=== PATIENT | female | born 1980 | race Caucasian/White ===

== ENCOUNTER → 2017-03-20 | Outpatient (CLI) | payer OTHER ==
[~2017-03-20] MED LIST: AMOXICILLIN500 M2 PO; BENADRYL25 MG PO; BUSPIRONE10 MG PO; CLARITIN10 MG PO; CLOBETASOL0.05% TP; DAILY VALUE1 EACH PO; DAYPRO600 M1 PO; ELIMITE 5%60 GM PO; FIORICET 325 MG1 TAB PO; FLEXERIL10 MG PO; FLONASE ALLERG9.9 ML NAS; LOTRISONE 0.05%1 CRE T; MACROBID100 M1 PO; MELATONIN3 M1 PO; Motrin,Rufen800 MG PO; NORCO 10-325 T1 EACH PO; PREDNICOT20 MG PO; PREDNISONE10 MG PO; PREDNISONE20 MG PO; PRENATAL1 TA1 PO; ROBAXIN750 MG PO; ROBITUSSIN AC 110 ML PO; SALINE NOSE SPR45 ML NS; TRIAMCINOLONE AC0.1% T; TYLENOL325 M1 PO; VENLAFAXINE37.5 M1 PO; ZANTAC 150150 MG PO; ZYRTEC10 MG PO
== END | disposition home or self-care (01) ==
LOC: RAD 16:34
DX: M54.5 Low back pain (principal); M54.2 Cervicalgia; M25.512 Pain in left shoulder

== ENCOUNTER 2017-05-05 22:13 | Emergency (ER) | payer OTHER ==
[~2017-05-05] VITALS: Ht 157.4 cm; Wt 75.7 kg
[2017-05-05 22:46] LABS: BASO # 0.1 10*3/uL (0.0-0.1); BASO % 0.8 % (0.0-1.0); EOS # 0.3 10*3/uL (0.0-0.4); EOS % 3.8 % (1.0-4.0); HEMATOCRIT 36.5 % (37.0-47.0); HEMOGLOBIN 11.7 g/dl (12.0-16.0); LYMPH # 2.2 10*3/uL (1.3-4.4); LYMPH % 28.4 % (27.0-41.0); MEAN CELL VOLUME 76.7 fl (81.0-99.0); MEAN CORPUSCULAR HGB 24.6 pg (27.0-31.0); MEAN CORPUSCULAR HGB CONC 32.1 g/dl (33.0-37.0); MEAN PLATELET VOLUME 9.6 fl (9.6-12.3); MONO # 0.9 10*3/uL (0.1-1.0); MONO % 11.2 % (3.0-9.0); NEUT # 4.3 10*3/uL (2.3-7.9); NEUT % 55.7 % (47.0-73.0); PLATELET COUNT AUTOMATED 233 10*3/uL (130-400); RED BLOOD COUNT 4.76 10*6/uL (4.10-5.10); RED CELL DISTRI WIDTH 15.9 % (0-14.5); WHITE BLOOD COUNT 7.7 10*3/uL (4.8-10.8)
[2017-05-05 22:59] LABS: BUN 13 mg/dl (7-24); CARBON DIOXIDE 27 mmol/L (21-32); CHLORIDE 102 mmol/L (98-107); EST GLOM FILT AFRICAN AMERICAN > 60 ml/min; GLUCOSE 97 mg/dL (65-99); POTASSIUM 3.9 mmol/L (3.5-5.1); SODIUM 137 mmol/L (136-145)
[2017-05-05] MEDS ORDERED: FLUCONAZOLE100 MG PO (23:51)
[2017-05-05] MEDS ORDERED: METROGEL-VAGINA70 GM V (23:51)
[2017-05-05] MEDS ORDERED: LOTRIMIN ULTRA12 GM T (23:51)
[2017-05-05] MEDS ORDERED: MYCOLOG CREAM 115 GM T (23:56)
== END 2017-05-06 00:06 | disposition home or self-care (01) ==
LOC: ED 22:13
PROVIDERS: Emergency Medicine Emergency Medical Services
DX: N76.0 Acute vaginitis (principal); R53.83 Other fatigue; F17.200 Nicotine dependence, unspecified, uncomplicated; Z91.040 Latex allergy status; Z88.6 Allergy status to analgesic agent

== ENCOUNTER 2017-07-19 15:43 | Emergency (ER) | payer OTHER ==
[~2017-07-19] VITALS: Ht 172.7 cm; Wt 68.0 kg
[~2017-07-19 15:43] MED LIST changes: +FLUCONAZOLE100 MG PO; +LOTRIMIN ULTRA12 GM T; +METROGEL-VAGINA70 GM V; +MYCOLOG CREAM 115 GM T
[2017-07-19] MEDS ORDERED: ROBITUSSIN DM 105 ML PO (15:59)
[2017-07-19] MEDS ORDERED: FLONASE ALLERG9.9 ML NAS (15:59)
[2017-07-19] MEDS ORDERED: CLARITIN10 MG PO (15:59)
[2017-07-19] MEDS ORDERED: PREDNISONE10 MG PO (15:59)
== END 2017-07-19 17:07 | disposition home or self-care (01) ==
LOC: ED 15:43
DX: B34.9 Viral infection, unspecified (principal); R03.0 Elevated blood-pressure reading, without diagnosis of hypertension; F17.200 Nicotine dependence, unspecified, uncomplicated; Z88.5 Allergy status to narcotic agent; Z91.040 Latex allergy status

== ENCOUNTER 2017-11-15 12:31 | Emergency (ER) | payer OTHER ==
[~2017-11-15] VITALS: Ht 157.4 cm; Wt 80.3 kg
[~2017-11-15 12:31] MED LIST changes: +ROBITUSSIN DM 105 ML PO
[2017-11-15] MEDS ORDERED: ZOLOFT25 MG PO (12:49)
[2017-11-15] MEDS ORDERED: ADDERALL 20 MG20 MG PO (12:49)
[2017-11-15] MEDS ORDERED: FLONASE ALLERG9.9 ML NAS (14:21)
[2017-11-15] MEDS ORDERED: CEFDINIR300 MG PO (14:21)
[2017-11-15] MEDS ORDERED: TESSALON PERLE100 M1 PO (14:21)
== END 2017-11-15 14:22 | disposition home or self-care (01) ==
LOC: ED 12:31
DX: S13.4XXA Sprain of ligaments of cervical spine, initial encounter (principal); J01.10 Acute frontal sinusitis, unspecified; F17.200 Nicotine dependence, unspecified, uncomplicated; Z79.899 Other long term (current) drug therapy; Z88.5 Allergy status to narcotic agent; Z91.040 Latex allergy status; X50.1XXA Overexertion from prolonged static or awkward postures, initial encounter; Y93.89 Activity, other specified; Y92.89 Other specified places as the place of occurrence of the external cause; Y99.9 Unspecified external cause status

== ENCOUNTER 2019-09-11 15:55 | Emergency (ER) | payer OTHER ==
[~2019-09-11] VITALS: Wt 81.6 kg
[~2019-09-11 15:55] MED LIST changes: +ADDERALL 20 MG20 MG PO; +CEFDINIR300 MG PO; +TESSALON PERLE100 M1 PO; +ZOLOFT25 MG PO
[2019-09-11] MEDS ORDERED: NASA MIST SALIN75 ML NAS (16:08)
== END 2019-09-11 16:22 | disposition home or self-care (01) ==
LOC: ED 15:55
DX: J06.9 Acute upper respiratory infection, unspecified (principal); F17.200 Nicotine dependence, unspecified, uncomplicated; Z91.040 Latex allergy status; Z88.5 Allergy status to narcotic agent; Z79.2 Long term (current) use of antibiotics; Z79.899 Other long term (current) drug therapy

== ENCOUNTER 2019-09-26 01:22 | Emergency (ER) | payer OTHER ==
[~2019-09-26] VITALS: Ht 157.4 cm; Wt 81.6 kg
[~2019-09-26 01:22] MED LIST changes: +NASA MIST SALIN75 ML NAS
[2019-09-26] MEDS ORDERED: FLAGYL500 MG PO (01:55)
[2019-09-26] MEDS ORDERED: DIFLUCAN150 MG PO (02:09)
== END 2019-09-26 02:20 | disposition home or self-care (01) ==
LOC: ED 01:22
DX: N76.0 Acute vaginitis (principal); F17.200 Nicotine dependence, unspecified, uncomplicated; Z91.040 Latex allergy status; Z88.5 Allergy status to narcotic agent; Z79.2 Long term (current) use of antibiotics; Z79.899 Other long term (current) drug therapy

== ENCOUNTER 2020-05-23 22:04 | Emergency (ER) | payer OTHER ==
[~2020-05-23] VITALS: Wt 81.6 kg
[~2020-05-23 22:04] MED LIST changes: +DIFLUCAN150 MG PO; +FLAGYL500 MG PO
[2020-05-23 23:08] LABS: BASO % 0.3 % (0.0-1.0); EOS # 0.1 10*3/uL (0.0-0.4); EOS % 0.7 % (1.0-4.0); HEMATOCRIT 36.5 % (37.0-47.0); LYMPH # 0.7 10*3/uL (1.3-4.4); LYMPH % 6.6 % (27.0-41.0); MEAN CELL VOLUME 71.6 fl (81.0-99.0); MEAN CORPUSCULAR HGB 21.6 pg (27.0-31.0); MEAN CORPUSCULAR HGB CONC 30.1 g/dl (33.0-37.0); MEAN PLATELET VOLUME 9.1 fl (9.6-12.3); MONO # 0.8 10*3/uL (0.1-1.0); NEUT # 8.3 10*3/uL (2.3-7.9); NEUT % 84.2 % (47.0-73.0); PLATELET COUNT AUTOMATED 320 10*3/uL (130-400); RED CELL DISTRI WIDTH 16.8 % (0-14.5); WHITE BLOOD COUNT 9.8 10*3/uL (4.8-10.8)
[2020-05-23 23:23] LABS: ALBUMIN 3.6 gm/dl (3.1-4.5); ALKALINE PHOSPHATASE 85 U/L (45-117); BUN 11 mg/dl (7-24); CHLORIDE 105 mmol/L (98-107); CREATININE 0.77 mg/dL (0.55-1.02); SGOT/AST 25 IU/L (3-35); SGPT/ALT 55 U/L (12-78); SODIUM 138 mmol/L (136-145); TOTAL PROTEIN 7.7 gm/dL (6.4-8.2)
[2020-05-24 01:38] LABS: BILIRUBIN NEGATIVE; BLOOD NEGATIVE (NEGATIVE); CLARITY CLOUDY (CLEAR); COLOR YELLOW (YELLOW); GLUCOSE NEGATIVE; KETONE 1+; LEUKO ESTERASE 1+ (NEGATIVE); NITRITE NEGATIVE (NEGATIVE); PH 5.5 (4.5-8.0)
[2020-05-24 01:40] LABS: URINE AMPHETAMINES < 1000 (1000ng/ml); URINE BARBITURATES > 200 (200ng/ml); URINE BENZODIAZEPINES < 200 (200ng/ml); URINE CANNABINOIDS (THC) < 50 (50ng/ml); URINE COCAINE < 300 (300ng/ml); URINE METHADONE < 300 (300ng/ml); URINE OPIATES < 300 (300ng/ml); URINE PHENCYCLIDINE < 25 (25ng/ml)
[2020-05-24 01:46] LABS: EPITHELIAL CELLS 41-50
== END 2020-05-24 02:37 | disposition home or self-care (01) ==
LOC: ED 22:04
PROVIDERS: Emergency Medicine
DX: R51 Headache (principal); F41.9 Anxiety disorder, unspecified; F17.200 Nicotine dependence, unspecified, uncomplicated; Z91.040 Latex allergy status; Z88.5 Allergy status to narcotic agent; Z79.899 Other long term (current) drug therapy

== ENCOUNTER → 2020-06-02 | Outpatient (CLI) | payer OTHER ==
[2020-06-02 09:43] LABS: THYROID STIM HORMONE (HS) 4.88 uIU/ml (0.358-4.75)
[2020-06-03 08:08] LABS: HEP B CORE AB, IGM Negative (Negative); HEPATITIS B SURFACE AG Negative (Negative); HEPATITIS C VIRUS ANTIBODY <0.1 s/co (0.0-0.9)
== END | disposition home or self-care (01) ==
LOC: LAB 08:18
PROVIDERS: ATTEND Family Medicine
DX: A69.20 Lyme disease, unspecified (principal); R79.82 Elevated C-reactive protein (CRP); R53.83 Other fatigue

== ENCOUNTER → 2020-06-11 | Outpatient (CLI) | payer OTHER | END | disposition home or self-care (01) | LOC: LAB 11:01 | PROVIDERS: ATTEND Family Medicine | DX: R94.6 Abnormal results of thyroid function studies (principal); F17.200 Nicotine dependence, unspecified, uncomplicated ==

== ENCOUNTER 2020-06-26 04:50 | Emergency (ER) | payer OTHER ==
[~2020-06-26] VITALS: Ht 157.4 cm; Wt 73.0 kg
[2020-06-26] MEDS ORDERED: PREDNISONE20 M1 PO (05:12)
== END 2020-06-26 05:25 | disposition home or self-care (01) ==
LOC: ED 04:50
DX: J40 Bronchitis, not specified as acute or chronic (principal)

== ENCOUNTER → 2020-10-08 | Outpatient (CLI) | payer OTHER ==
[~2020-10-08] MED LIST changes: +PREDNISONE20 M1 PO; +PREDNISONE50 MG PO
[2020-10-08 06:45] LABS: HEMATOCRIT 33.2 % (37.0-47.0); MEAN CELL VOLUME 69.2 fl (81.0-99.0); MEAN CORPUSCULAR HGB 20.2 pg (27.0-31.0); MEAN CORPUSCULAR HGB CONC 29.2 g/dl (33.0-37.0); MEAN PLATELET VOLUME 9.4 fl (9.6-12.3); RED BLOOD COUNT 4.8 10*6/uL (4.10-5.10); RED CELL DISTRI WIDTH 17.2 % (0-14.5); WHITE BLOOD COUNT 5.8 10*3/uL (4.8-10.8)
[2020-10-08 07:09] LABS: ALBUMIN 3.7 gm/dl (3.1-4.5); ALKALINE PHOSPHATASE 62 U/L (45-117); BUN 12 mg/dl (7-24); CHLORIDE 108 mmol/L (98-107); CHOLESTEROL 198 mg/dL (<200); CREATININE 0.88 mg/dL (0.55-1.02); HDL CHOLESTEROL 58 mg/dl (40-60); LDL CHOLESTEROL 112 mg/dL (9-159); POTASSIUM 3.6 mmol/L (3.5-5.1); SGOT/AST 16 IU/L (3-35); SGPT/ALT 28 U/L (12-78); SODIUM 139 mmol/L (136-145); TOTAL PROTEIN 7.3 gm/dL (6.4-8.2); TRIGLYCERIDES 142 mg/dl (<150); VLDL CHOLESTEROL 28 mg/dL (6-40)
== END | disposition home or self-care (01) ==
LOC: LAB 06:11
PROVIDERS: ATTEND Family Medicine
DX: E28.2 Polycystic ovarian syndrome (principal); B37.9 Candidiasis, unspecified

== ENCOUNTER 2020-12-19 08:04 | Emergency (ER) | payer OTHER ==
[~2020-12-19 08:04] MED LIST changes: -PREDNISONE50 MG PO
[2020-12-19] MEDS ORDERED: PREDNISONE50 MG PO (08:53)
== END 2020-12-19 08:57 | disposition home or self-care (01) ==
LOC: ED 08:04
DX: L25.9 Unspecified contact dermatitis, unspecified cause (principal); F41.9 Anxiety disorder, unspecified; F90.9 Attention-deficit hyperactivity disorder, unspecified type; Z91.040 Latex allergy status; Z88.8 Allergy status to other drugs, medicaments and biological substances; Z88.5 Allergy status to narcotic agent; Z79.899 Other long term (current) drug therapy

== ENCOUNTER 2021-04-20 05:19 | Emergency (ER) | payer OTHER ==
[~2021-04-20] VITALS: Ht 170.1 cm; Wt 72.6 kg
[~2021-04-20 05:19] MED LIST changes: +PREDNISONE50 MG PO
[2021-04-20] MEDS ORDERED: PENICILLIN VK500 MG PO (05:31)
== END 2021-04-20 05:41 | disposition home or self-care (01) ==
LOC: ED 05:19
DX: K02.9 Dental caries, unspecified (principal); Z91.040 Latex allergy status; Z88.8 Allergy status to other drugs, medicaments and biological substances; Z88.5 Allergy status to narcotic agent; Z79.899 Other long term (current) drug therapy

== ENCOUNTER 2022-07-06 23:22 | Emergency (ER) | payer OTHER ==
[~2022-07-06] VITALS: Ht 167.6 cm; Wt 69.9 kg
[~2022-07-06 23:22] MED LIST changes: +PENICILLIN VK500 MG PO
[2022-07-06 23:44] LABS: BASO # 0.1 10*3/uL (0.0-0.1); BASO % 0.9 % (0.0-1.0); EOS # 0.2 10*3/uL (0.0-0.4); EOS % 2.1 % (1.0-4.0); HEMATOCRIT 35.7 % (37.0-47.0); LYMPH # 2.2 10*3/uL (1.3-4.4); LYMPH % 20.5 % (27.0-41.0); MEAN CELL VOLUME 72.4 fl (81.0-99.0); MEAN CORPUSCULAR HGB 22.1 pg (27.0-31.0); MEAN CORPUSCULAR HGB CONC 30.5 g/dl (33.0-37.0); MEAN PLATELET VOLUME 9.1 fl (9.6-12.3); MONO # 1.1 10*3/uL (0.1-1.0); MONO % 10.5 % (3.0-9.0); NEUT % 65.8 % (47.0-73.0); PLATELET COUNT AUTOMATED 310 10*3/uL (130-400); RED BLOOD COUNT 4.93 10*6/uL (4.10-5.10); RED CELL DISTRI WIDTH 19.4 % (0-14.5); WHITE BLOOD COUNT 10.6 10*3/uL (4.8-10.8)
[2022-07-06 23:59] LABS: ALKALINE PHOSPHATASE 79 U/L (45-117); BUN 9 mg/dl (7-24); CHLORIDE 105 mmol/L (98-107); CREATININE 0.85 mg/dL (0.55-1.02); SGOT/AST 16 IU/L (3-35); SGPT/ALT 26 U/L (12-78); SODIUM 137 mmol/L (136-145); TOTAL PROTEIN 7.9 gm/dL (6.4-8.2)
== END 2022-07-07 03:16 | disposition home or self-care (01) ==
LOC: ED 23:22
PROVIDERS: Emergency Medicine
DX: R07.89 Other chest pain (principal); F32.A Depression, unspecified; F17.200 Nicotine dependence, unspecified, uncomplicated; Z91.040 Latex allergy status; Z88.8 Allergy status to other drugs, medicaments and biological substances; Z88.5 Allergy status to narcotic agent; Z79.899 Other long term (current) drug therapy; Z79.2 Long term (current) use of antibiotics

== ENCOUNTER 2023-06-25 21:51 | Emergency (ER) | payer OTHER ==
[~2023-06-25] VITALS: Ht 170.1 cm; Wt 81.6 kg
[~2023-06-25 21:51] MED LIST changes: +AMOX-CLAV 875-1 EACH PO
[2023-06-25] MEDS ORDERED: CLINDAMYCIN HC300 MG PO (22:20)
== END 2023-06-25 22:50 | disposition home or self-care (01) ==
LOC: ED 21:51
DX: R11.0 Nausea (principal); T36.0X5A Adverse effect of penicillins, initial encounter; T36.1X5A Adverse effect of cephalosporins and other beta-lactam antibiotics, initial encounter; K04.7 Periapical abscess without sinus; F90.9 Attention-deficit hyperactivity disorder, unspecified type; F41.9 Anxiety disorder, unspecified; F32.A Depression, unspecified; Z87.42 Personal history of other diseases of the female genital tract; Z91.040 Latex allergy status; Z88.8 Allergy status to other drugs, medicaments and biological substances; Z88.5 Allergy status to narcotic agent; Z79.2 Long term (current) use of antibiotics; Z79.899 Other long term (current) drug therapy; Y92.89 Other specified places as the place of occurrence of the external cause

== ENCOUNTER 2023-10-21 19:07 | Emergency (ER) | payer OTHER ==
[~2023-10-21] VITALS: Ht 157.4 cm; Wt 68.9 kg
[~2023-10-21 19:07] MED LIST changes: +CLINDAMYCIN HC300 MG PO
[2023-10-21] MEDS ORDERED: AMOXICILLIN500 M2 PO (21:12)
== END 2023-10-21 20:59 | disposition home or self-care (01) ==
LOC: ED 19:07
DX: S66.310A Strain of extensor muscle, fascia and tendon of right index finger at wrist and hand level, initial encounter (principal); K04.7 Periapical abscess without sinus; F17.210 Nicotine dependence, cigarettes, uncomplicated; F14.90 Cocaine use, unspecified, uncomplicated; F10.10 Alcohol abuse, uncomplicated; Z91.040 Latex allergy status; Z88.5 Allergy status to narcotic agent; Z88.8 Allergy status to other drugs, medicaments and biological substances; Z98.890 Other specified postprocedural states; W22.8XXA Striking against or struck by other objects, initial encounter; Y93.89 Activity, other specified; Y92.89 Other specified places as the place of occurrence of the external cause; Y99.8 Other external cause status

== ENCOUNTER 2023-11-19 20:41 | Emergency (ER) | payer OTHER ==
[~2023-11-19] VITALS: Ht 157.4 cm; Wt 68.9 kg
[2023-11-19] MEDS ORDERED: Ketorolac Tromethamine 60 MG/2 ML VIAL IM ONE (21:05)
[2023-11-19] MEDS ORDERED: Amoxicillin/Clavulanate Pota 875 MG TAB PO ONE (21:05)
== END 2023-11-19 21:17 | disposition home or self-care (01) ==
LOC: ED 20:41
DX: K04.7 Periapical abscess without sinus (principal); K02.9 Dental caries, unspecified; F41.9 Anxiety disorder, unspecified; F10.10 Alcohol abuse, uncomplicated; F14.90 Cocaine use, unspecified, uncomplicated; F17.210 Nicotine dependence, cigarettes, uncomplicated; Z91.040 Latex allergy status; Z88.8 Allergy status to other drugs, medicaments and biological substances; Z98.890 Other specified postprocedural states

== ENCOUNTER 2024-01-26 18:02 | Emergency (ER) | payer OTHER ==
[~2024-01-26] VITALS: Ht 157.4 cm; Wt 70.8 kg
[2024-01-26] MEDS ORDERED: ALLEGRA ALLERG180 M2 PO (18:29)
== END 2024-01-26 19:18 | disposition home or self-care (01) ==
LOC: ED 18:02
DX: J30.2 Other seasonal allergic rhinitis (principal); F41.9 Anxiety disorder, unspecified; Z91.040 Latex allergy status; Z88.8 Allergy status to other drugs, medicaments and biological substances; Z98.890 Other specified postprocedural states; F10.10 Alcohol abuse, uncomplicated; F17.210 Nicotine dependence, cigarettes, uncomplicated; F14.90 Cocaine use, unspecified, uncomplicated

== ENCOUNTER 2024-06-30 00:21 | Emergency (ER) | payer OTHER ==
[~2024-06-30] VITALS: Ht 157.4 cm; Wt 68.0 kg
[~2024-06-30 00:21] MED LIST changes: +ALLEGRA ALLERG180 M2 PO
== END 2024-06-30 02:10 | disposition left against medical advice (07) ==
LOC: ED 00:21
DX: S01.01XA Laceration without foreign body of scalp, initial encounter (principal); S09.8XXA Other specified injuries of head, initial encounter; E78.5 Hyperlipidemia, unspecified; D64.9 Anemia, unspecified; F41.9 Anxiety disorder, unspecified; F17.210 Nicotine dependence, cigarettes, uncomplicated; F10.10 Alcohol abuse, uncomplicated; F12.90 Cannabis use, unspecified, uncomplicated; Z91.040 Latex allergy status; Z88.8 Allergy status to other drugs, medicaments and biological substances; Z53.29 Procedure and treatment not carried out because of patient's decision for other reasons; Z98.890 Other specified postprocedural states; W01.0XXA Fall on same level from slipping, tripping and stumbling without subsequent striking against object, initial encounter; Y93.89 Activity, other specified; Y92.89 Other specified places as the place of occurrence of the external cause; Y99.8 Other external cause status

== ENCOUNTER 2024-06-30 02:50 | Emergency (ER) | payer OTHER ==
[~2024-06-30] VITALS: Ht 157.4 cm; Wt 68.0 kg
== END 2024-06-30 05:01 | disposition home or self-care (01) ==
LOC: ED 02:50
DX: S01.01XA Laceration without foreign body of scalp, initial encounter (principal); S09.8XXA Other specified injuries of head, initial encounter; D64.9 Anemia, unspecified; E78.5 Hyperlipidemia, unspecified; F14.10 Cocaine abuse, uncomplicated; F10.10 Alcohol abuse, uncomplicated; F17.210 Nicotine dependence, cigarettes, uncomplicated; Z91.040 Latex allergy status; Z88.8 Allergy status to other drugs, medicaments and biological substances; Z98.890 Other specified postprocedural states; W01.0XXA Fall on same level from slipping, tripping and stumbling without subsequent striking against object, initial encounter; Y93.89 Activity, other specified; Y92.89 Other specified places as the place of occurrence of the external cause; Y99.8 Other external cause status

== ENCOUNTER 2024-07-14 19:38 | Emergency (ER) | payer OTHER | END 2024-07-14 20:09 | disposition home or self-care (01) | LOC: ED 19:38 | DX: S01.01XD Laceration without foreign body of scalp, subsequent encounter (principal); F41.9 Anxiety disorder, unspecified; F10.10 Alcohol abuse, uncomplicated; F17.210 Nicotine dependence, cigarettes, uncomplicated; F14.90 Cocaine use, unspecified, uncomplicated; Z91.040 Latex allergy status; Z88.8 Allergy status to other drugs, medicaments and biological substances; Z98.890 Other specified postprocedural states; X58.XXXD Exposure to other specified factors, subsequent encounter ==

== ENCOUNTER 2025-02-06 04:39 | Emergency (ER) | payer OTHER ==
[~2025-02-06] VITALS: Ht 157.5 cm; Wt 71.2 kg
[2025-02-06] MEDS ORDERED: CLINDAMYCIN HCL 300 MG CAPSULE PO ONE (05:00)
[2025-02-06] MEDS ORDERED: Acetaminophen/Codeine Phosph #3 PO ONE (05:00)
[2025-02-06] MEDS ORDERED: CLINDAMYCIN HC300 MG PO (05:04)
== END 2025-02-06 05:24 | disposition home or self-care (01) ==
LOC: ED 04:39
DX: K08.89 Other specified disorders of teeth and supporting structures (principal); F41.9 Anxiety disorder, unspecified; F17.200 Nicotine dependence, unspecified, uncomplicated; Z79.899 Other long term (current) drug therapy; Z88.8 Allergy status to other drugs, medicaments and biological substances; Z91.040 Latex allergy status; Z98.890 Other specified postprocedural states

== ENCOUNTER 2025-03-28 22:53 | Emergency (ER) | payer OTHER ==
[~2025-03-28] VITALS: Ht 157.4 cm; Wt 70.3 kg
[2025-03-28] MEDS ORDERED: Amoxicillin/Clavulanate Pota 875 MG TAB PO ONE (23:15)
== END 2025-03-28 23:59 | disposition home or self-care (01) ==
LOC: ED 22:53
DX: S51.852A Open bite of left forearm, initial encounter (principal); L23.7 Allergic contact dermatitis due to plants, except food; Z88.8 Allergy status to other drugs, medicaments and biological substances; Z91.040 Latex allergy status; Z87.891 Personal history of nicotine dependence; Z98.890 Other specified postprocedural states; W54.0XXA Bitten by dog, initial encounter; Y93.89 Activity, other specified; Y92.89 Other specified places as the place of occurrence of the external cause; Y99.8 Other external cause status

== ENCOUNTER → 2025-05-19 | Outpatient (CLI) | payer OTHER ==
[2025-05-19 08:44] LABS: MEAN CELL VOLUME 70.9 fl (81.0-99.0); MEAN CORPUSCULAR HGB 20.9 pg (27.0-31.0); MEAN PLATELET VOLUME 9.0 fl (9.6-12.3); NUCLEATED RED BLOOD CELL 0.0 % (0.0-0.0); NUCLEATED RED BLOOD CELL 0.0 10*3/uL (0.0-0.0); PLATELET COUNT AUTOMATED 451.0 10*3/uL (130-400); RED CELL DISTRI WIDTH 17.4 % (0-14.5)
[2025-05-19 09:06] LABS: BUN 12 mg/dl (9-23); CPK 99 U/L (34-171); SGPT/ALT 41 U/L (5-49)
[2025-05-19 09:36] LABS: VITAMIN D, 25-HYDROXY 26.8 ng/mL (30-100)
== END ==
LOC: LAB 08:23
PROVIDERS: ATTEND Family Medicine
DX: E78.00 Pure hypercholesterolemia, unspecified (principal); E55.9 Vitamin D deficiency, unspecified; D64.9 Anemia, unspecified; F41.1 Generalized anxiety disorder; E74.00 Glycogen storage disease, unspecified; F10.20 Alcohol dependence, uncomplicated; E28.310 Symptomatic premature menopause

== ENCOUNTER 2025-07-03 05:56 | Emergency (ER) | payer OTHER ==
[~2025-07-03] VITALS: Ht 157.4 cm; Wt 72.6 kg
== END 2025-07-03 06:38 ==
LOC: ED 05:56
DX: Z04.6 Encounter for general psychiatric examination, requested by authority (principal); Z91.040 Latex allergy status; Z88.8 Allergy status to other drugs, medicaments and biological substances; Z79.899 Other long term (current) drug therapy; Z98.890 Other specified postprocedural states; F17.210 Nicotine dependence, cigarettes, uncomplicated

== ENCOUNTER 2025-09-21 19:35 | Emergency (ER) | payer OTHER ==
[~2025-09-21] VITALS: Ht 157.4 cm; Wt 72.6 kg
[2025-09-21] MEDS ORDERED: ACETAMINOPHEN 325 MG TAB PO ONE (20:40)
[2025-09-22] MEDS ORDERED: MELATONIN5 M7 PO (23:34)
[2025-09-22] MEDS ORDERED: AMPHETAMINE SAL15 M1 PO (23:34)
[2025-09-22] MEDS ORDERED: HYDROXYZINE PAM25 M1 PO (23:34)
== END 2025-09-21 21:40 | disposition left against medical advice (07) ==
LOC: ED 19:35
DX: R07.89 Other chest pain (principal); Z98.890 Other specified postprocedural states; Z91.040 Latex allergy status; Z88.8 Allergy status to other drugs, medicaments and biological substances; Z20.822 Contact with and (suspected) exposure to COVID-19; Y04.0XXA Assault by unarmed brawl or fight, initial encounter

== ENCOUNTER 2025-09-22 23:14 | Emergency (ER) | payer OTHER ==
[~2025-09-22] VITALS: Wt 72.6 kg
[2025-09-22] MEDS ORDERED: MELATONIN5 M7 PO (23:34)
[2025-09-22] MEDS ORDERED: HYDROXYZINE PAM25 M1 PO (23:34)
[2025-09-22] MEDS ORDERED: AMPHETAMINE SAL15 M1 PO (23:34)
== END 2025-09-23 00:22 | disposition home or self-care (01) ==
LOC: ED 23:14
DX: Z00.00 Encounter for general adult medical examination without abnormal findings (principal); F41.9 Anxiety disorder, unspecified; Z91.040 Latex allergy status; Z88.8 Allergy status to other drugs, medicaments and biological substances